=== PATIENT | female | born 2000 | race African-American/Black ===

== ENCOUNTER 2023-09-16 19:28 | Emergency (ER) | payer OTHER ==
[~2023-09-16] VITALS: Ht 162.6 cm; Wt 61.0 kg
[2023-09-16 19:53] VITALS: TEMP 98.3
[2023-09-16 22:30] VITALS: BP 127/79; PULSE 74; RESP 17
[2023-09-16] MEDS ORDERED: LORazepam 1 MG TABLET PO ONE (22:30)
[2023-09-16] MEDS ORDERED: LORazepam 0.5 MG TABLET PO ONE (22:30)
== END 2023-09-16 22:32 | disposition home or self-care (01) ==
LOC: EMS 19:30
DX: F41.9 Anxiety disorder, unspecified (principal); F43.10 Post-traumatic stress disorder, unspecified
CPT/HCPCS: 99283

== ENCOUNTER 2023-10-01 18:56 | Emergency (ER) | payer OTHER ==
[~2023-10-01] VITALS: Ht 162.6 cm; Wt 55.5 kg
[2023-10-01 19:14] VITALS: TEMP 98.1
[2023-10-01] MEDS ORDERED: FLUC150T61 PO (19:51)
[2023-10-01 20:14] VITALS: BP 130/58; PULSE 62; RESP 15
== END 2023-10-01 20:17 | disposition home or self-care (01) ==
LOC: EMS 18:56
DX: B37.31 Acute candidiasis of vulva and vagina (principal); F41.9 Anxiety disorder, unspecified
CPT/HCPCS: 99281; Z7502

== ENCOUNTER 2023-10-27 08:18 | Emergency (ER) | payer OTHER ==
[~2023-10-27] VITALS: Ht 162.6 cm; Wt 59.1 kg
[~2023-10-27 08:18] MED LIST: FLUC150T61 PO
[2023-10-27] MEDS ORDERED: [UNRECOGNIZED DRUG - OTHER] PO (08:31)
[2023-10-27 08:33] VITALS: TEMP 98
[2023-10-27 09:01] LABS: BASOPHILS % (AUTO) 0.5 % (0.0-2.0); EOSINOPHILS % (AUTO) 0.5 % (1.0-6.0); HEMATOCRIT 39.7 % (36-46); LYMPHOCYTES # (AUTO) 1.7 K/uL (1.0-4.8); LYMPHOCYTES % (AUTO) 51.7 % (22.0-44.0); MEAN CORPUSCULAR HEMOGLOBIN 29.2 pg (26.0-34.0); MEAN CORPUSCULAR HGB CONC 32.8 G/dL (31.0-37.0); MEAN CORPUSCULAR VOLUME 89 fL (80-100); MONOCYTES # (AUTO) 0.3 K/uL (0.1-1.0); MONOCYTES % (AUTO) 8.3 % (2.0-9.0); NEUTROPHILS # (AUTO) 1.3 K/uL (1.8-7.7); PLATELET COUNT (AUTO) 194 K/uL (150-450); RED BLOOD CELL COUNT(AUTO) 4.46 MIL/uL (4.00-5.20); RED CELL DISTRIBUTION WIDTH 14.1 % (11.5-14.5); WHITE BLOOD COUNT (AUTO) 3.4 K/uL (4.5-11.0)
[2023-10-27 09:37] LABS: ANION GAP 11 mmol/L (8-16); CALCIUM, TOTAL 9.1 mg/dL (8.8-10.5); CARBON DIOXIDE 24 mmol/L (22-29); CHLORIDE 106 mmol/L (98-107); CREATININE 0.73 mg/dL (0.60-1.30); GLOMERULAR FILTR. RATE CALC > 60 mL/min (>60); GLUCOSE,RANDOM 75 mg/dL (70-110); POTASSIUM 3.7 mmol/L (3.5-5.1); SODIUM SERUM 141 mmol/L (136-145); UREA NITROGEN, BLOOD 6 mg/dL (7-18)
[2023-10-27 09:42] LABS: ALANINE AMINOTRANSFERASE 20 U/L (12-78); ALBUMIN 3.8 g/dL (3.4-5.0); ALKALINE PHOSPHATASE 52 U/L (46-116); ASPARTATE AMINOTRANSFERASE 22 U/L (15-37); BILIRUBIN,TOTAL 0.4 mg/dL (0.1-1.0); TOTAL PROTEIN, SERUM 7.6 g/dL (6.4-8.2)
[2023-10-27 10:06] VITALS: BP 126/81; PULSE 84; RESP 18
== END 2023-10-27 10:06 | disposition home or self-care (01) ==
LOC: EMS 08:18
DX: F41.9 Anxiety disorder, unspecified (principal); R20.2 Paresthesia of skin
CPT/HCPCS: 80053; 84703; 85025; 99283